=== PATIENT | female | born 1985 | race Hispanic/Latino ===

== ENCOUNTER 2018-11-04 11:22 | Emergency (ER) | payer BC ==
[~2018-11-04] VITALS: Ht 157.5 cm; Wt 73.5 kg
[2018-11-04] MEDS ORDERED: MULTI-VITAMIN1 EACH PO (11:44)
[2018-11-04] MEDS ORDERED: EZ NITE SLEEP25 MG PO (11:46)
== END 2018-11-04 16:25 | disposition home or self-care (01) ==
LOC: ED 11:22
DX: O20.0 Threatened abortion (principal); Z3A.10 10 weeks gestation of pregnancy
CPT/HCPCS: 76801; 76817; 99284-25

== ENCOUNTER 2019-05-15 22:00 | Inpatient (IN) | payer BC, OTHER ==
[~2019-05-15 22:00] MED LIST: EZ NITE SLEEP25 MG PO; FERROUS SULFAT325 MG PO; MULTI-VITAMIN1 EACH PO; PRENATAL VITAM1 EAC6 PO
--- NOTE | 2019-05-17 11:39 | PR ---
[facility] [address] [facility] [place], [place] [address] Signed PP Progress Notes Datetime Report Generated by CPN: 05/17/2019 11:39 SUBJECTIVE: [id number] Pain: Within normal limits Nausea/Vomiting: Denies Flatus: Yes Bowel Movement: Yes Vital Signs: [id number] Vital Signs: Reviewed Notable Details: One elevated BP. Will recheck prior to D/C EXAM: [id number] Cardiovascular: Normal Respiratory: Normal Abdomen/Uterus: Normal Lochia: Normal Vulva/Perineum: Not Done Breasts: Not Done CVA Tenderness: Normal Extremities: Normal Incision: Not Applicable Progress: Normal Exam Comments: Fundus firm U-2 nontender IMPRESSION/PLAN/PROCEDURES: [id number] Impression: Normal progression Plan: Discharge Progress Notes: Pt seen and examined. Doing well. Ambulating, voiding, and tolerating full diet. Pain and lochia minimal. and pumping. No fevers, headaches, RUQ pain, or visual changes. One elevated BP this AM. D/C home Signing Physician: Mireille Hernandez DO Copies: ~ *Electronically Signed* 05/17/19 1139 MIREILLE HERNANDEZ DO PATIENT NAME: CHARLENE CROCKER PROGRESS NOTE DATE OF : 81 PHYSICIAN: MIREILLE HERNANDEZ DO RPT #: [id number] REPORT IS CONFIDENTIAL AND NOT TO BE RELEASED WITHOUT AUTHORIZATION
== END 2019-05-17 12:35 | disposition home or self-care (01) | DRG 807 ==
LOC: FBCO 22:00 → FBC 22:18
PROVIDERS: ADMIT Obstetrics & Gynecology
PROC: 00HU33Z Insertion of Infusion Device into Spinal Canal, Percutaneous Approach (ICD-10-PCS; 2019-05-15)
PROC: 3E0R3BZ Introduction of Anesthetic Agent into Spinal Canal, Percutaneous Approach (ICD-10-PCS; 2019-05-15)
PROC: 10E0XZZ Delivery of Products of Conception, External Approach (ICD-10-PCS; principal; 2019-05-16)
DX: O69.81X0 Labor and delivery complicated by cord around neck, without compression, not applicable or unspecified (principal); Z37.0 Single live birth; Z3A.38 38 weeks gestation of pregnancy; O62.3 Precipitate labor; O99.02 Anemia complicating childbirth; D64.9 Anemia, unspecified
CPT/HCPCS: 36415; 85027; A9270; J2590; J2795; J3010; J7121

== ENCOUNTER 2021-11-07 22:48 | Emergency (ER) | payer BC, OTHER ==
[~2021-11-07] VITALS: Ht 157.5 cm; Wt 87.1 kg
[2021-11-07] MEDS ORDERED: VANDAZOLE70 GM VAGINAL (23:34)
[2021-11-07] MEDS ORDERED: DIFLUCAN150 MG PO (23:34)
== END 2021-11-07 23:53 | disposition home or self-care (01) ==
LOC: ED 22:48
DX: N76.0 Acute vaginitis (principal)

== ENCOUNTER 2021-12-25 10:21 | Emergency (ER) | payer BC, OTHER ==
[~2021-12-25] VITALS: Ht 157.5 cm; Wt 71.9 kg
[~2021-12-25 10:21] MED LIST changes: +DIFLUCAN150 MG PO; +VANDAZOLE70 GM VAGINAL
[2021-12-25] MEDS ORDERED: CYCLOBENZAPRINE10 MG PO (11:08)
== END 2021-12-25 11:25 | disposition home or self-care (01) ==
LOC: ED 10:21
DX: M54.41 Lumbago with sciatica, right side (principal)
CPT/HCPCS: 96372; 99283; A9270; J1885; J8540

== ENCOUNTER 2023-05-02 11:07 | Emergency (ER) | payer BC, OTHER ==
[~2023-05-02] VITALS: Ht 157.5 cm; Wt 71.3 kg
[~2023-05-02 11:07] MED LIST changes: +CYCLOBENZAPRINE10 MG PO
[2023-05-02] MEDS ORDERED: diphenhydrAMINE HCL 50 MG CAP PO ONE (13:00)
[2023-05-02] MEDS ORDERED: FAMOTIDINE 20 MG TAB PO ONE (13:00)
[2023-05-02] MEDS ORDERED: dexAMETHasone 4 MG TAB PO ONE (13:00)
[2023-05-02 14:02] VITALS: BP 124/86
== END 2023-05-02 14:02 | disposition home or self-care (01) ==
LOC: ED 11:07
DX: T65.891A Toxic effect of other specified substances, accidental (unintentional), initial encounter (principal); L25.3 Unspecified contact dermatitis due to other chemical products
CPT/HCPCS: 99282; J8540; Q0163

== ENCOUNTER 2023-10-24 18:27 | Emergency (ER) | payer BC ==
[~2023-10-24] VITALS: Ht 157.5 cm; Wt 69.1 kg
[2023-10-24] MEDS ORDERED: WAL-PROFEN200 M1 PO (18:42)
[2023-10-24] MEDS ORDERED: diazePAM 10 MG/2 ML SYR IM ONE (19:45)
[2023-10-24] MEDS ORDERED: KETOROLAC TROMETHAMINE 60 MG/2 ML VIAL IM ONE (19:45)
[2023-10-24] MEDS ORDERED: CYCLOBENZAPRINE10 MG PO (20:45)
[2023-10-24 20:55] VITALS: BP 110/81
[2023-10-24] MEDS ORDERED: CYCLOBENZAPRINE HCL 10 MG HOME.PACK PO ONE (21:00)
[2023-10-24] MEDS ORDERED: methylPREDNISolone 4 MG HOME.PACK PO ONE (21:00)
== END 2023-10-24 20:55 | disposition home or self-care (01) ==
LOC: ED 18:27
DX: S39.012A Strain of muscle, fascia and tendon of lower back, initial encounter (principal); X50.0XXA Overexertion from strenuous movement or load, initial encounter
CPT/HCPCS: 36415; 72100; 84703; J1885; J3360